=== PATIENT | female | born 1965 | race Caucasian/White ===

== ENCOUNTER 2016-12-15 12:26 | Day surgery (SDC) | payer BC ==
[~2016-12-15] VITALS: Ht 170.2 cm; Wt 95.4 kg
[~2016-12-15 12:26] MED LIST: NO HOME MEDICATIONS
[2016-12-15 12:40] VITALS: BP 120/78; PULSE 67; TEMP 98.3
[2016-12-15] MEDS ORDERED: PRINIVIL10 MG PO (13:00)
[2016-12-15 14:30] VITALS: BP 122/82; PULSE 79
[2016-12-15 14:45] VITALS: BP 112/76; PULSE 67
[2016-12-15 15:00] VITALS: BP 114/78; PULSE 62
== END 2016-12-15 15:20 | disposition home or self-care (01) ==
LOC: SDCO 12:26
DX: Z12.11 Encounter for screening for malignant neoplasm of colon (principal); I10 Essential (primary) hypertension; E66.9 Obesity, unspecified; E78.5 Hyperlipidemia, unspecified
CPT/HCPCS: OP; J2250; J3010; J7030

== ENCOUNTER → 2017-01-08 | Outpatient (CLI) | payer BC ==
[~2017-01-08] MED LIST changes: +PRINIVIL10 MG PO
== END ==
LOC: MC.RAD 07:30
DX: Z12.31 Encounter for screening mammogram for malignant neoplasm of breast (principal); N64.89 Other specified disorders of breast

== ENCOUNTER → 2017-01-12 | Outpatient (CLI) | payer BC | LOC: MC.RAD 07:25 | DX: N60.01 Solitary cyst of right breast (principal) ==